=== PATIENT | female | born 2000 | race Caucasian/White ===

== ENCOUNTER 2023-05-01 10:22 | Emergency (ER) | payer MEDICAID ==
[~2023-05-01] VITALS: Ht 170.2 cm; Wt 106.0 kg
[2023-05-01 10:48] VITALS: BP 132/86
[2023-05-01] MEDS ORDERED: HYDROcodone/acetaminophen 5mg/325mg tablet PO ONE (11:25)
[2023-05-01] MEDS ORDERED: naproxen 500mg tablet PO ONE (11:25)
[2023-05-01] MEDS ORDERED: PENI250T2 PO (11:27)
[2023-05-01] MEDS ORDERED: TRAM50TA2 PO (11:27)
[2023-05-01] MEDS ORDERED: NAPR-56 PO (11:27)
== END 2023-05-01 11:47 | disposition home or self-care (01) ==
LOC: ER 10:23
DX: K02.9 Dental caries, unspecified (principal); Z79.899 Other long term (current) drug therapy
CPT/HCPCS: 99283

== ENCOUNTER 2023-07-28 14:46 | Emergency (ER) | payer MEDICAID ==
[~2023-07-28] VITALS: Ht 165.1 cm; Wt 105.8 kg
[2023-07-28 14:54] VITALS: BP 133/93; PULSE 107; RESP 14; TEMP 96.9; O2SAT 98
== END 2023-07-28 21:23 | disposition left against medical advice (07) ==
LOC: ER 14:47
DX: M79.602 Pain in left arm (principal); Z53.21 Procedure and treatment not carried out due to patient leaving prior to being seen by health care provider
CPT/HCPCS: 99281